=== PATIENT | male | born 1930 | race Caucasian/White ===

== ENCOUNTER 2016-12-23 21:20 | Inpatient (IN) | payer MEDICARE, MEDICAID ==
[2016-12-23 21:21] VITALS: BMI 20.3
[2016-12-23 22:27] LABS: BASO # 0.1 K/uL (0.0-0.2); BASO % 0.4 % (0.0-2.0); EOS % 0.3 % (0.0-4.0); HEMATOCRIT 44.9 % (35.0-51.0); LYMPH # 1.3 K/uL (1.0-4.3); LYMPH % 9.5 % (20.0-40.0); MEAN CORPUSCULAR HEMOGLOBIN 30.8 pg (27.0-31.0); MEAN CORPUSCULAR HGB CONC 33.3 g/dL (33.0-37.0); MEAN PLATELET VOLUME 8.4 fL (7.2-11.7); MONO # 0.4 K/uL (0.0-0.8); PLATELET COUNT 272 K/uL (130-400); RED CELL DISTRIBUTION WIDTH 13.9 % (11.5-14.5)
[2016-12-23 22:35] LABS: INR 1.1
[2016-12-23 22:37] LABS: CHLORIDE 102 mmol/L (98-107)
[2016-12-23 22:38] LABS: POTASSIUM 3.8 mmol/L (3.6-5.2); SODIUM 135 mmol/L (132-148)
[2016-12-23 22:40] LABS: GFR AFRICAN-AMERICAN > 60
[2016-12-23 22:41] LABS: ALB/GLOB RATIO 1.3 (1.0-2.1); ALKALINE PHOSPHATASE 132 U/L (38-126); ALT/SGPT 12 U/L (21-72); AST/SGOT 23 U/L (17-59); BILIRUBIN,TOTAL 0.6 mg/dL (0.2-1.3); BLOOD UREA NITROGEN 14 mg/dL (9-20); CALCIUM 8.8 mg/dl (8.6-10.4); CARBON DIOXIDE 18 mmol/L (22-30); GLUCOSE,RANDOM 186 mg/dL (75-110); TOTAL PROTEIN 6.8 g/dL (6.3-8.3)
[2016-12-23 22:42] LABS: MEAN CELL VOLUME 92.5 fL (80.0-94.0); WHITE BLOOD COUNT 13.7 K/uL (4.8-10.8)
[2016-12-23 22:58] LABS: BASOPHIL 1 % (0-2); NEUTROPHIL 88 % (50-75); TOTAL CELLS COUNTED 100
[2016-12-23 22:59] LABS: LARGE PLATELETS PRESENT
--- NOTE | 2016-12-23 23:41 | C.PDOC ---
History Of Present Illness 86 year old male was brought to the ED by relative after having a seizure at the residential. Patient's relative states patient has a history of seizures and has been refusing to take his medicines, therefore the doctor stopped the keppra. No reported fever, is eating OK and presently back to baseline Time Seen by Provider: 12/23/16 21:54 Chief Complaint (Nursing): Altered Mental Status History Per: Family History/Exam Limitations: no limitations Onset/Duration Of Symptoms: Hrs Past Medical History Reviewed: Historical Data, Nursing Documentation, Vital Signs Vital Signs: Last Vital Signs Temp 97.9 F 12/23/16 21:41 Pulse 60 12/23/16 21:27 Resp 17 12/23/16 21:27 BP 118/67 12/23/16 21:27 Pulse Ox 99 12/23/16 23:43 - Medical History PMH: Alzheimer's Disease, Anxiety, Arthritis, Atrial Fibrillation, Benign Prostatic Hyperplasia, CAD, CHF, COPD, 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), Dementia, Depression, Gastritis, Gastrointestinal Ulcer, HTN, Hypercholesterolemia, Hyperlipidemia, Peripheral Edema, Seizures Surgical History: Pacemaker - [facility] Procedures CENTRAL VENOUS CATHETER PLACEMENT WITH GUIDANCE (03/31/15) CONTINUOUS INVASIVE MECHANICAL VENTILATION <96 CONSEC HRS (02/02/14) CONTINUOUS INVASIVE MECHANICAL VENTILATION =/>96 CONSEC HRS (03/31/15) CORONAR ARTERIOGR-2 CATH (02/02/14) ETHMOIDECTOMY (07/06/99) FRONTAL SINUSOTOMY (07/06/99) INSERT ENDOTRACHEAL TUBE (03/31/15) INTRANAS LES DESTRUCTION (07/06/99) INTRANASAL ANTROTOMY (07/06/99) LEFT HEART CARDIAC CATH (02/02/14) LT HEART ANGIOCARDIOGRAM (02/02/14) NON-INVASIVE MECHANICAL VENTILATION (03/31/15) NONEXCIS DEBRID OF WOUND, INFECT, OR BURN (07/15/13) PACEMAKER RATE CHECK (02/02/14) SPHENOIDOTOMY (07/06/99) Family History: States: Unknown Family Hx - Social History Hx Tobacco Use: No Hx Alcohol Use: No Hx Substance Use: No Review Of Systems Constitutional: Negative for: Fever, Chills Respiratory: Negative for: Cough Gastrointestinal: Negative for: Vomiting, Abdominal Pain, Diarrhea Physical Exam - Physical Exam Appears: Non-toxic, Chronically Ill Skin: Warm, Dry Eye(s): bilateral: Normal Inspection Oral Mucosa: Moist Tongue: Other (not bitten) Neck: Supple Cardiovascular: Rhythm Regular, No Murmur Respiratory: No Rales, No Rhonchi, No Wheezing Gastrointestinal/Abdominal: Soft, No Tenderness, No Distention, No Guarding Extremity: Normal ROM, No Tenderness Neurological/Psych: Oriented x3, Normal Speech, Normal Motor (= ) ED Course And Treatment - Laboratory Results Result Diagrams: 12/23/16 22:23 12/23/16 22:23 ECG Rhythm: AV Paced Rate From EC O2 Sat by Pulse Oximetry: 99 Pulse Ox Interpretation: Normal Medical Decision Making Medical Decision Making: Labs mildly elevated wbc's, remainder unremarkable CT no acute changes Pt had grand mal seizure, medicated with ativan iv and IV keppra ordered In view of the recurrent seizure and apparently being off his keppra pt will need admission for further stabilization. Case discussed with dr Hanna agrees with plan. Disposition - Disposition Disposition: HOSPITALIZED Disposition Time: 00:36 Condition: FAIR - Clinical Impression Clinical Impression: Seizures - Scribe Statement The provider has reviewed the documentation as recorded by the Scribe Michelle Pickard All medical record entries made by the Scribe were at my direction and personally dictated by me. I have reviewed the chart and agree that the record accurately reflects my personal performance of the history, physical exam, medical decision making, and the department course for this patient. I have also personally directed, reviewed, and agree with the discharge instructions and disposition.
[2016-12-23] MEDS ORDERED: levETIRAcetam 1,000 MG in Dextrose 5% In Water 200 ML IVPB ONE (23:53)
--- NOTE | 2016-12-24 08:19 | CT ---
PROCEDURE: CT HEAD WITHOUT CONTRAST. HISTORY: Seizure COMPARISON: None available. TECHNIQUE: Axial computed tomography images were obtained through the head/brain without intravenous contrast. Radiation dose: Total exam DLP = 901 mGy-cm. This CT exam was performed using one or more of the following dose reduction techniques: Automated exposure control, adjustment of the mA and/or kV according to patient size, and/or use of iterative reconstruction technique. FINDINGS: HEMORRHAGE: No intracranial hemorrhage. BRAIN: Scattered focal lucencies in the subcortical and periventricular white matter suggestive for chronic microvascular ischemic change. Moderate to severe brain volume loss. Right frontal hypodensity/hypodensities probably reflect chronic infarction. Right basal ganglia lacunar infarction. Bilateral basal ganglia calcifications. Cerebellar atrophy. VENTRICLES: Unremarkable. No hydrocephalus. CALVARIUM: Diffuse calvarial lytic lucencies are nonspecific. Clinical correlation recommended for lytic bone disease versus osteoporosis. PARANASAL SINUSES: Postsurgical changes. Mucosal thickening in the sphenoid sinus. MASTOID AIR CELLS: Unremarkable as visualized. No inflammatory changes. OTHER FINDINGS: Calcific atherosclerosis of the bilateral carotid siphon. IMPRESSION: Diffuse calvarial lytic lucencies are nonspecific. Clinical correlation recommended for lytic bone disease versus osteoporosis. Moderate to severe brain volume loss. Chronic microvascular ischemic change. Right frontal hypodensity/hypodensities probably reflect chronic infarction. Right basal ganglia lacunar infarct. Additional findings as above. If focal neurologic deficit persists, consider MRI. These findings were preliminarily reported at 11:35 p.m. on 12/23/[address] Wale Khalil from [facility].
--- NOTE | 2016-12-24 08:25 | RAD ---
PROCEDURE: CHEST RADIOGRAPH, 1 VIEW HISTORY: seizure COMPARISON: 04/07/2015 FINDINGS: LUNGS: Biapical pleural thickening with upper lobe granulomatous changes. Mild venous congestion. Diffuse increased interstitial lung markings. Patchy bibasilar airspace opacities. Trace left pleural effusion with blunted left costophrenic angle. PLEURA: As above. CARDIOVASCULAR: Left-sided pacemaker. OSSEOUS STRUCTURES: No significant abnormalities. VISUALIZED UPPER ABDOMEN: Normal. OTHER FINDINGS: None. IMPRESSION: Biapical pleural thickening with upper lobe granulomatous changes. Mild venous congestion. Diffuse increased interstitial lung markings. Patchy bibasilar airspace opacities. Trace left pleural effusion with blunted left costophrenic angle.
--- NOTE | 2016-12-24 14:44 | VASCLAB ---
PROCEDURE: HISTORY: CAD, uncontrolled seizure COMPARISON: Last exam 04/01/2015,normal. TECHNIQUE: Grayscale and duplex Doppler evaluation of the cervical carotid and vertebral arteries were performed. The common carotid, carotid bifurcations and cervical Internal Carotid Artery (ICA) and proximal External Carotid Artery (ECA) were evaluated. The vertebral arteries were evaluated for gross patency and flow direction. Report prepared by FERNIE Nava FINDINGS: RIGHT CAROTID ARTERIES: 1. Common Carotid Artery: Mild heterogeneous plaque formation of the right common carotid artery. Maximum Peak Systolic velocity: 53 cm/sec: End-diastolic velocity 0 cm/sec. 2. Carotid Bifurcation: Heterogeneous plaque formation. Maximum Peak Systolic velocity: 22 cm/sec: End-diastolic velocity 7 cm/sec. 3. Internal Carotid Artery: Plaque description: Heterogeneous 3.1. Proximal Segment: Peak systolic velocity 45 cm/sec: End-diastolic velocity 8 cm/sec - % stenosis 0-15% 3.2. Middle Segment: Peak systolic velocity 59 cm/sec: End-diastolic velocity 17 cm/sec - % stenosis 0-15% 3.3. Distal Segment: Peak systolic velocity 33 cm/sec: End-diastolic velocity 9 cm/sec - % stenosis 0-15% 4. External Carotid Artery: Heterogeneous focal plaque formation. Peak systolic velocity 59 cm/sec 5. ICA/CCA Ratio: 2.1 LEFT CAROTID ARTERIES: 1. Common Carotid Artery: Mild heterogeneousplaque formation of the left common carotid artery. Maximum Peak Systolic velocity: 77 cm/sec: End-diastolic velocity 9 cm/sec. 2. Carotid Bifurcation: Heterogeneous plaque formation. Maximum Peak Systolic velocity: 27 cm/sec: End-diastolic velocity 9 cm/sec. 3. Internal Carotid Artery: Plaque description: Heterogeneous 3.1. Proximal Segment: Peak systolic velocity 32 cm/sec: End-diastolic velocity 4 cm/sec - % stenosis 0-15% 3.2. Middle Segment: Peak systolic velocity 59 cm/sec: End-diastolic velocity 18 cm/sec - % stenosis 0-15% 3.3. Distal Segment: Peak systolic velocity 59 cm/sec: End-diastolic velocity 10 cm/sec - % stenosis 0-15% 4. External Carotid Artery: No significant focal plaque formation. Peak systolic velocity 58 cm/sec 5. ICA/CCA Ratio: 2.0 VERTEBRAL ARTERIES: 1. Right Vertebral Artery: The right vertebral artery flow direction is antegrade. 2. Left Vertebral Artery: Unable to visualize the left vertebral artery. OTHER FINDINGS: 1. Right Brachial Blood pressure: 110 mmHg. 2. Left Brachial Blood pressure: 115 mmHg. IMPRESSION: RIGHT: Duplex scan does not suggest hemodynamically significant stenosis of the right extracranial carotid arteries. Severely tortuous right ICA. LEFT: Duplex scan does not suggest hemodynamically significant stenosis of the left extracranial carotid arteries.
[2016-12-24] MEDS: Potassium Chloride 20 MEQ in Dextrose 5%/0.9% NS 1,000 ML IV SCH (16:35)
--- NOTE | 2016-12-24 18:53 | CON ---
DATE: 12/24/2016 REASON FOR CONSULTATION: Seizure. HISTORY OF PRESENT ILLNESS: The patient is an 86-year-old male who was brought from group home aft er he had a seizure. The patient apparently was refusing his medications in the group home. His K eppra was stopped recently. The patient apparently was noticed to be lethargic and sleepy and it was assumed that the patient had a seizure. The patient did not have any fever and was back to his base line. Denies any focal weakness in arms or legs. According to his daughter, he does have memory iss ues. He is able to walk a little and take a few steps, goes to the bathroom by himself with the help of a cane or walker. PAST MEDICAL HISTORY: Includes Alzheimer disease, anxiety, atrial fibrillation, benign prostate hype rplasia, coronary artery disease, CHF, COPD, CVA with left hemiparesis, depression, gastritis, hyperc holesterolemia, seizures. MEDICATIONS AT HOME: Included Keppra 1000 mg b.i.d. which was recently stopped, Crestor, Protonix, m etoprolol, Cozaar, Lasix, Lanoxin, Pulmicort, aspirin, and albuterol. ALLERGIES: No known drug allergies. SOCIAL HISTORY: The patient is a group home resident, nonsmoker and nonalcoholic. Does not use an y illicit drugs. FAMILY HISTORY: Noncontributory to the case. PHYSICAL EXAMINATION: GENERAL: The patient is an elderly male lying on the bed, in no acute distress. VITAL SIGNS: His blood pressure is 129/84, heart rate is 86 per minute, breathing at a rate of 16 pe r minute, and his temperature is 97.9 degrees Fahrenheit. HEENT: Normocephalic, atraumatic. NECK: Supple. There are no carotid bruits. LUNGS: Clear. CARDIOVASCULAR: S1, S2 audible. No murmurs. ABDOMEN: Soft and nontender with bowel sounds present. NEUROLOGIC EXAMINATION: MENTAL STATUS: The patient is awake, alert. He follows simple commands. He does not know the year or the month. CRANIAL NERVES: Pupils are 3 mm, minimally reactive to light. Extraocular movements are intact. Th ere is no facial asymmetry. He is awake, moving all 4 extremities symmetrically. Power appears to b e 4/5 all over. Reflexes 1+ and symmetrical with absent ankle jerk. Plantars downgoing bilaterally. CEREBELLAR: No gross dysmetria is seen. SENSORY: Intact to soft touch and pinprick. GAIT: Deferred at the moment. LABORATORY DATA: Labs reviewed, shows WBC of 13.7, hemoglobin 14.9, hematocrit is 44.9, platelets of 272. INR is 1.1. Sodium is 135, potassium 3.8, chloride 102, carbon dioxide 18, BUN of 14, creatin ine of 1.2 and glucose of 186. His digoxin level is 0.6. He had a CT scan of the head done, which s hows diffuse calvarial lytic lucencies, nonspecific, moderate to severe brain volume loss, chronic mi crovascular ischemic changes, right frontal hypodensity/hypodensities probably reflect chronic infarc tion. Right basal ganglia lacunar infarct. He had carotid Doppler studies, which shows no significa nt stenosis. IMPRESSION: 1. Seizure disorder with breakthrough seizures secondary to the patient not taking the medication. 2. Alzheimer disease. 3. Cerebrovascular disease. RECOMMENDATIONS: 1. The patient was started on Keppra 500 mg every 12 hours, which is to be continued. 2. The patient to have an electroencephalogram. 3. The patient to be started on aspirin with his history of underlying cerebrovascular disease. 4. The patient to have physical therapy for gait imbalance. 5. The patient to have seizure precautions. Thank you for the opportunity to participate in the care of this patient. Brittny Mendoza MD cc: [id number] TT: 12/24/2016 18:53:18 Confirmation # [id number] Dictation # [id number] [email or web address]
--- NOTE | 2016-12-24 19:41 | EEG ---
DATE: 12/24/2016 INTRODUCTION: This is a digitally recorded EEG monitoring using standard EEG montages. BACKGROUND RHYTHM: The EEG shows a background activity of 7 Hz theta activity in parietooccipital re gion. The EEG activity is bilaterally symmetrical and synchronous. Small amount of myogenic artifac t noticed in this EEG recording. ABNORMAL POTENTIALS: No spikes, sharp waves or focal slowing was seen. PHOTIC STIMULATION AND HYPERVENTILATION: Photic stimulation did not reveal any abnormality. Hyperve ntilation was not performed. IMPRESSION: Abnormal EEG. The above findings are consistent with mild bihemispheric cerebral dysfun ction. No epileptiform activity seen in this EEG recording. Brittny Mendoza MD cc: [id number] TT: 12/24/2016 19:40:57 Confirmation # [id number] Dictation # [id number] jamari
[2016-12-25] MEDS: Potassium Chloride 20 MEQ in Dextrose 5%/0.9% NS 1,000 ML IV SCH ×3 (03:55→20:29)
--- NOTE | 2016-12-25 07:57 | CARD ---
APPROVED REPORT EKG Measurement Heart [id number] <Conclusion> Ventricular-paced rhythm Abnormal ECG
--- NOTE | 2016-12-25 11:59 | CP.PCM.CON ---
History of Present Illness - History of Present Illness History of Present Illness: Palliative consult for clarifying the Code status Requested by Jacques KENDALL patient is a 86 yo male admitted from [facility], S/P seizures. patient has Hx of seizures, but refused to take Kepra as was ordered. The Carotid Doppler study found no hemodinamically significant stenosis. patient seem by Doctor Kelly and EEG ordered. The Out of Hospital DNR copy was on chart. It was not clear what was the in hospital Code status for this patient. I was asked to assist with this issue. PMH: seizures, Alzheimer's, anxiety, BPH, CAD, COPD, CHF Soc. Hx: , [facility] resident Fam. Hx: Unknown Review of Systems - Review of Systems Systems not reviewed;Unavailable: Altered Mental Status Past Patient History - Tetanus Immunizations Tetanus Immunization: Unknown - Past Medical History & Family History Past Medical History?: Yes - Past Social History Smoking Status: Never Smoked - CARDIAC Hx Atrial Fibrillation: Yes Hx Congestive Heart Failure: Yes Hx Hypercholesterolemia: Yes Hx Hypertension: Yes Hx Pacemaker: Yes Hx Peripheral Edema: Yes - PULMONARY Hx Chronic Obstructive Pulmonary Disease (COPD): Yes - NEUROLOGICAL Hx Alzheimer's Disease: Yes Hx Dementia: Yes Hx Seizures: Yes - HEENT Hx HEENT Problems: No Other/Comment: uses reading eyeglasses, vision decreased/presbyopia - RENAL Hx Chronic Kidney Disease: No - ENDOCRINE/METABOLIC Hx Endocrine Disorders: No - HEMATOLOGICAL/ONCOLOGICAL Hx Blood Disorders: No - INTEGUMENTARY Hx Dermatological Problems: No - MUSCULOSKELETAL/RHEUMATOLOGICAL Hx Arthritis: Yes Hx Falls: No - GASTROINTESTINAL Hx Gastritis: Yes - GENITOURINARY/GYNECOLOGICAL Hx Genitourinary Disorders: No - PSYCHIATRIC Hx Anxiety: Yes Hx Depression: Yes Hx Substance Use: No - SURGICAL HISTORY Hx Surgeries: Yes Hx Cardiac Catheterization: Yes (02/02/14) Other/Comment: pacemaker insertion-02/02/14;ethmoidectomy,frontal sinusotomy, intranasal antrotomy,sphenoidotomy-07/06/99; - ANESTHESIA Hx Anesthesia: Yes Hx Anesthesia Reactions: No Hx Malignant Hyperthermia: No Meds Allergies/Adverse Reactions: Allergies Allergy/AdvReac Type Severity Reaction Status Date / Time No Known Allergies Allergy Verified 12/23/16 21:35 - Medications Medications: Current Medications Aspirin (Aspirin Chewable) 81 mg PO DAILY [facility] Last Admin: 12/25/16 10:18 Dose: 81 mg Citalopram Hydrobromide (Celexa) 40 mg PO DAILY [facility] Last Admin: 12/25/16 10:19 Dose: 40 mg Enoxaparin Sodium (Lovenox) 30 mg SC DAILY [facility] Levetiracetam 500 mg/ Dextrose 105 mls @ 420 mls/hr IVPB Q12H [facility] Last Admin: 12/25/16 03:00 Dose: 420 mls/hr Potassium Chloride 20 meq/ (Dextrose/Sodium Chloride) 1,010 mls @ 70 mls/hr IV .[id number] [facility] Last Admin: 12/25/16 03:55 Dose: 70 mls/hr Lorazepam (Ativan) 1 mg IVP Q6H PRN PRN Reason: Seizure activity Last Admin: 12/24/16 22:16 Dose: 1 mg Losartan Potassium (Cozaar) 25 mg PO DAILY [facility] Last Admin: 12/25/16 10:18 Dose: 25 mg Metoprolol Tartrate (Lopressor) 25 mg PO BID [facility] Last Admin: 12/25/16 10:18 Dose: 25 mg Pantoprazole Sodium (Protonix Inj) 40 mg IVP DAILY [facility] Rosuvastatin Calcium (Crestor) 10 mg PO HS [facility] Last Admin: 12/24/16 22:00 Dose: 10 mg Physical Exam - Constitutional Appears: No Acute Distress - Head Exam Head Exam: ATRAUMATIC, NORMAL INSPECTION, NORMOCEPHALIC - Eye Exam Eye Exam: Normal appearance Pupil Exam: NORMAL ACCOMODATION - ENT Exam ENT Exam: Mucous Membranes Moist, Normal Exam - Neck Exam Neck exam: Positive for: Normal Inspection - Respiratory Exam Respiratory Exam: Decreased Breath Sounds, Clear to Auscultation Bilateral, NORMAL BREATHING PATTERN - Cardiovascular Exam Cardiovascular Exam: Tachycardia, REGULAR RHYTHM, +S1, +S2 - GI/Abdominal Exam GI & Abdominal Exam: Diminished Bowel Sounds - Rectal Exam Rectal Exam: Deferred - Exam Exam: NORMAL INSPECTION - Extremities Exam Extremities exam: Positive for: normal capillary refill, normal inspection, pedal pulses present - Back Exam Back exam: NORMAL INSPECTION - Neurological Exam Neurological exam: Alert, Altered - Psychiatric Exam Psychiatric exam: Flat Affect - Skin Skin Exam: Intact, Normal Color, Warm Results - Vital Signs Recent Vital Signs: Last Vital Signs Temp 97.4 F L 12/25/16 08:00 Pulse 92 H 12/25/16 08:00 Resp 19 12/25/16 08:00 BP 130/90 12/25/16 10:18 Pulse Ox 93 L 12/24/16 16:00 - Labs Result Diagrams: 12/23/16 22:23 12/23/16 22:23 Assessment & Plan - Assessment and Plan (Free Text) Assessment: Palliative consult Code status DNR as per Out of Hospital DNR form. PPS 30%. ROS unobtainable due to confusion I reviewed medical records, all diagnostic studies, examined patient in the bed and tried to interview him, what was limited due to AMS. Goals of care discussed with patient's daughter Arely over the phone on two different occasions. Patient is alert, and with occasional confusion, in no acute distress. Patient requires max assistance with ADLs, due to AMS. Patient was fed breakfast by aid this morning. BP 130/90, HR 92, O2Sat 93% NC. No new seizures activities. Doctor Kelly ordered Kepra 500 mg IV BID and seizure precautions. I discussed he Code status with patient's daughter Arely, who is a SW at [facility]. POLST faxed over from [place] indicates DNR only where the DNI section was left open. The goals of care indicates " comfort and proper nutrition" while the Medical interventions sections states ' Symptoms treatment only". I read this back to Arely. She was clear that she would not want her father to be intubated either but would want all other non invasive measures to be applied to support life, including IV antibiotics, non invasive Oxygen supply, wound care, blood transfusion etc. I suggested that the current POLST needed to be updated and she agreed. Impression * Patient is S/P seizures at [facility] recovering well * Kepra Tx initiated * Copy of POLST from [facility] on chart indicates DNR only * In phone conversation with patient' daughter Arely, it was made clear that she would not want patient to be intubated either * We agreed to update the existing POLST Suggestion * DNR/DNI as per daughter's request * I will prepare new POLST for the daughter to sign when visits * Maintain safety and seizure precautions * Assist with ADLs * Discharge planing to [facility] [place] when stable Thank you very much for consulting Palliative care
[2016-12-25] MEDS ORDERED: Enoxaparin 30 mg Syringe SC SCH (13:30)
[2016-12-25 20:13] LABS: RBC URINE 2 /hpf (0-3); URINE BACTERIA MOD (<OCC); URINE BILIRUBIN NEGATIVE (NEGATIVE); URINE COLOR Yellow (YELLOW); URINE GLUCOSE (UA) 1+ mg/dL (Normal); URINE KETONE TRACE mg/dL (NEGATIVE); URINE LEUKOCYTE ESTERASE NEG Leu/uL (Negative); URINE PROTEIN 2+ mg/dL (NEGATIVE); URINE URIC ACID CRYSTALS MOD /hpf (<OCC); URINE UROBILINOGEN NORMAL mg/dL (0.2-1.0); WBC URINE 4 /hpf (0-5)
[2016-12-25 20:15] LABS: URINE BLOOD 1+ (NEGATIVE)
--- NOTE | 2016-12-25 20:25 | CP.PCM.HP ---
History of Present Illness - History of Present Illness History of Present Illness: LATE ENTRY FOR HISTORY AND PHYSICAL OF SAMANTHA BOYD, [place] [facility] [place] [facility]: cc: uncontrolled seizures, Pt was planning on gonig to a libertarian last week at the facility, when he suddenly slumped forward and pt became unresponsive to verbal and tactile stimuli.. Pt slowly recovered his senses and was brought back to his room, when he suddenly slumped over and appeared unaware of his surroundings. Pt received visitors back on the floor with minimal supervision. and when daughter arrived later, found the pt slumped over and disoriented, again. Pt had apparently been refusing to take his seizure medication and had been off of the meds for 1 week after it was discontinued by pt's PMD at the [facility]. Pt was brought to [facility] ER by EMS upon the family member's insistence since pt's records all at this facility. While at the ER, pt's seizure recurred. Pt was given IV Keppra at the field, and while awaiting to be seen by ER MD, pt had another grand mal seizure. Pt given 1 mg Ativan with no further seizure activity ever since. Present on Admission - Present on Admission Any Indicators Present on Admission: No History of DVT/PE: No History of Uncontrolled Diabetes: Yes Urinary Catheter: Yes Review of Systems - Review of Systems Systems not reviewed;Unavailable: Acuity of Condition, Unstable Vital Signs, Altered Mental Status - Constitutional Constitutional: Daytime Sleepiness, Fatigue - EENT Ears: As Per HPI Past Patient History - Tetanus Immunizations Tetanus Immunization: Unknown - Past Medical History & Family History Past Medical History?: Yes - Past Social History Smoking Status: Never Smoked - CARDIAC Hx Congestive Heart Failure: Yes Hx Hypercholesterolemia: Yes Hx Hypertension: Yes - PULMONARY Hx Chronic Obstructive Pulmonary Disease (COPD): Yes - NEUROLOGICAL HX Cerebrovascular Accident: Yes - HEENT Hx HEENT Problems: No Other/Comment: uses reading eyeglasses, vision decreased/presbyopia - RENAL Hx Chronic Kidney Disease: No - ENDOCRINE/METABOLIC Hx Endocrine Disorders: No - HEMATOLOGICAL/ONCOLOGICAL Hx Blood Disorders: No - INTEGUMENTARY Hx Dermatological Problems: No - MUSCULOSKELETAL/RHEUMATOLOGICAL Hx Arthritis: Yes Hx Falls: No - GASTROINTESTINAL Hx Gastritis: Yes - GENITOURINARY/GYNECOLOGICAL Hx Genitourinary Disorders: No - PSYCHIATRIC Hx Anxiety: Yes Hx Depression: Yes Hx Substance Use: No - SURGICAL HISTORY Hx Surgeries: Yes Hx Cardiac Catheterization: Yes (02/02/14) Other/Comment: pacemaker insertion-02/02/14;ethmoidectomy,frontal sinusotomy, intranasal antrotomy,sphenoidotomy-07/06/99; - ANESTHESIA Hx Anesthesia: Yes Hx Anesthesia Reactions: No Hx Malignant Hyperthermia: No Meds Allergies/Adverse Reactions: Allergies Allergy/AdvReac Type Severity Reaction Status Date / Time No Known Allergies Allergy Verified 12/23/16 21:35 Physical Exam - Constitutional Appears: In Acute Distress, Cachectic, Chronically Ill - Head Exam Head Exam: ATRAUMATIC, NORMAL INSPECTION, NORMOCEPHALIC - Eye Exam Eye Exam: PERRL Pupil Exam: NORMAL ACCOMODATION - ENT Exam ENT Exam: Mucous Membranes Dry - Neck Exam Neck exam: Positive for: Normal Inspection - Respiratory Exam Respiratory Exam: Clear to Auscultation Bilateral, NORMAL BREATHING PATTERN - Cardiovascular Exam Cardiovascular Exam: REGULAR RHYTHM - GI/Abdominal Exam GI & Abdominal Exam: Normal Bowel Sounds - Rectal Exam Rectal Exam: Deferred - Extremities Exam Extremities exam: Positive for: normal inspection - Back Exam Back exam: NORMAL INSPECTION - Neurological Exam Neurological exam: Alert, CN II-XII Intact, Oriented x3 - Psychiatric Exam Psychiatric exam: Normal Affect - Skin Skin Exam: Dry, Intact, Normal Color, Warm Results - Vital Signs Recent Vital Signs: Last Vital Signs Temp 97.8 F 12/25/16 16:00 Pulse 102 H 12/25/16 17:45 Resp 21 12/25/16 17:45 BP 134/96 H 12/25/16 17:53 Pulse Ox 95 12/25/16 17:45 - Labs Result Diagrams: 12/27/16 11:48 12/27/16 11:48 Assessment & Plan - Assessment and Plan (Free Text) Assessment: seizures: restart pt on Keppra IV with ativan for breakthrough > copd: continue neb treatments > debility: needs PT > OA: nsaids if able to tolerate > hematuria: reddish urine, ? acute kidney injury Decision To Admit - Admit Certification Admit to Inpatient:: I hereby certify that this patient needs to be admitted for more intensive inpatient care because of intractable seizures which can pose to be a lifethreatening condition for him. - InPatient: Physician Admission Certification:: I hereby certify that this patient needs to be admitted for more intensive inpatient care because of intractable seizures which can pose to be a lifethreatening condition for him. He will need to be admitted for at least 2 nights. - . Bed Request Type: Telemetry
--- NOTE | 2016-12-25 21:31 | PN ---
DATE: 12/25/2016 SUBJECTIVE: The patient is lying on the bed, in no acute distress. PHYSICAL EXAMINATION: VITAL SIGNS: His blood pressure is 134/96, heart rate is 102 per minute, breathing at a rate of 16 p er minute, temperature is 97.8 degrees Fahrenheit. HEENT: Normocephalic, atraumatic. NECK: Supple. There are no carotid bruits. LUNGS: Clear. CARDIOVASCULAR: S1, S2 audible. No murmurs. ABDOMEN: Soft and nontender with bowel sounds present. NEUROLOGIC EXAMINATION: MENTAL STATUS: The patient is awake and alert. He follows some simple commands. CRANIAL NERVE EXAMINATION: Pupils are 3 mm, minimally reactive to light. Extraocular movements are intact. There is no facial asymmetry. MOTOR EXAMINATION: He is moving all 4 extremities symmetrically. Power appears to 4/5 all over. Re flexes 1+ and symmetrical with absent ankle jerk. CEREBELLAR: No gross dysmetria is seen. SENSORY: Intact to soft touch and pinprick. GAIT: Deferred at the moment. LABORATORY DATA: Reviewed. Electroencephalogram which is abnormal. Findings suggestive of mild bih emispheric cerebral dysfunction. No epileptiform activity seen in the EEG recording. IMPRESSION: 1. Breakthrough seizure with history of seizure disorder. 2. Alzheimer disease. 3. Cerebrovascular disease. RECOMMENDATIONS: 1. The patient had no further seizures. 2. The patient to be continued on Keppra 500 mg twice a day. 3. The patient to be continued on aspirin for his underlying cerebrovascular disease. 4. The patient to be continued to have seizure precautions. 5. Please continue supportive care and other treatment. Thank you for the opportunity to participate in the care of this patient. Brittny Mendoza MD cc: [id number] TT: 12/25/2016 21:30:50 Confirmation # [id number] Dictation # [id number]
[2016-12-25] MEDS: levETIRAcetam 100 mg/ml (5ml) Oral Syringe PO SCH (22:39)
[2016-12-26] MEDS: Albuterol 0.042% Inhal Sol (1.25 mg/3 mL) UD IH SCH ×4 (01:02→19:43)
[2016-12-26] MEDS: Budesonide 0.5 mg/2 ml Inhal Susp UD INH SCH ×2 (07:40→19:43)
[2016-12-26] MEDS: levETIRAcetam 100 mg/ml (5ml) Oral Syringe PO SCH ×2 (09:35→22:19)
[2016-12-26] MEDS ORDERED: Enoxaparin 30 mg Syringe SC SCH (10:00)
[2016-12-26] MEDS: Potassium Chloride 20 MEQ in Dextrose 5%/0.9% NS 1,000 ML IV SCH (10:44)
[2016-12-26 12:56] LABS: INR 1.2
[2016-12-26 15:28] VITALS: RESP 20
[2016-12-26] MEDS: Digoxin 125 mcg (0.125 mg) Tab PO SCH (17:35)
[2016-12-27] MEDS: Albuterol 0.042% Inhal Sol (1.25 mg/3 mL) UD IH SCH ×4 (01:16→20:38)
[2016-12-27] MEDS: Potassium Chloride 20 MEQ in Dextrose 5%/0.9% NS 1,000 ML IV SCH (04:18)
[2016-12-27] MEDS: Budesonide 0.5 mg/2 ml Inhal Susp UD INH SCH ×2 (07:28→20:38)
--- NOTE | 2016-12-27 08:26 | US ---
Renal ultrasound History: Hematuria. Comparison: Abdominal ultrasound dated 10/22/2012 Technique: Real-time sonography was performed through the kidneys. Findings: Right kidney: 9.2 x 3.7 x 4.2 centimeters. Mild increased echogenicity of the renal cortex suggestive for medical renal disease. Hypoechoic cyst seen in the upper pole measuring 1.7 x 1.2 x 1.7 centimeters and in the midpole measuring 1.6 x 0.9 x 1.4 centimeters. No calculi or hydronephrosis. Left Kidney: 10.4 x 4.5 x 4.4 centimeters. Mild increased echogenicity of the renal cortex suggestive for medical renal disease. Upper pole hypoechoic cyst measuring 1.1 x 1.0 x 0.9 centimeters. No calculi or hydronephrosis. There is limited visualization of a distal abdominal aortic aneurysm measuring 3.3 x 3.2 x 3.7 centimeters with a suggestion of eccentric prominent mural plaque and/or thrombosis. Correlation with dedicated abdominal aortic ultrasound and or CT angiogram of the aorta may be helpful for further evaluation if clinically indicated. Visualized urinary bladder is preserved. Impression Bilateral renal cysts. Mild increased echogenicity of the bilateral renal cortices suggestive for medical renal disease. 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 Correlation with dedicated abdominal aortic ultrasound and or CT angiogram of the aorta may be helpful for further evaluation if clinically indicated.
[2016-12-27] MEDS: levETIRAcetam 100 mg/ml (5ml) Oral Syringe PO SCH ×2 (10:08→22:03)
[2016-12-27] MEDS: Furosemide 10 mg/mL LIQ (60mL) PO SCH (11:04)
[2016-12-27 12:04] LABS: CHLORIDE 113 mmol/L (98-107); SODIUM 143 mmol/L (132-148)
[2016-12-27 12:07] LABS: BLOOD UREA NITROGEN 29 mg/dL (9-20); CALCIUM 8.3 mg/dl (8.6-10.4); CARBON DIOXIDE 19 mmol/L (22-30); GFR AFRICAN-AMERICAN > 60; GLUCOSE,RANDOM 200 mg/dL (75-110)
[2016-12-27 12:11] LABS: BASO % 0.1 % (0.0-2.0); LYMPH # 0.6 K/uL (1.0-4.3); LYMPH % 5.6 % (20.0-40.0); MEAN CELL VOLUME 92.8 fL (80.0-94.0); MEAN CORPUSCULAR HEMOGLOBIN 30.5 pg (27.0-31.0); MEAN CORPUSCULAR HGB CONC 32.9 g/dL (33.0-37.0); MEAN PLATELET VOLUME 9.4 fL (7.2-11.7); MONO # 0.5 K/uL (0.0-0.8); MONO % 4.8 % (0.0-10.0); NRBC % 0.1 % (0.0-2.0); RED CELL DISTRIBUTION WIDTH 14.5 % (11.5-14.5); WHITE BLOOD COUNT 11.2 K/uL (4.8-10.8)
[2016-12-27 12:12] LABS: PLATELET COUNT 138 K/uL (130-400)
[2016-12-27 12:30] LABS: EOSINOPHIL 1 % (0-4); NEUTROPHIL 92 % (50-75); NUCLEATED RED BLOOD CELL 2 % (0-0); TOTAL CELLS COUNTED 100
[2016-12-27] MEDS: cefTRIAXone IV 1 gm in Dextros 50 ML IVPB SCH (13:26)
[2016-12-27] MEDS: Digoxin 125 mcg (0.125 mg) Tab PO SCH (17:11)
[2016-12-27 17:12] VITALS: PULSE 78
--- NOTE | 2016-12-27 21:41 | CP.PCM.PN ---
Subjective - Date & Time of Evaluation Date of Evaluation: 12/26/16 Time of Evaluation: 21:30 - Subjective Subjective: LATE ENTRY FOR 12/26/2016 Pt noted to have hematuria on admission manifesting as a pinkish tinge to urine. 1 day after, urine became josé miguel red and appeared to be bleeding heavily from within. Because of hx of prolonged seizure, acute kidney injury could not be ruled out. Urine cultures obtained also showed many bacteria and awaiting culture results with sensitivities as of today. Objective - Vital Signs/Intake and Output Vital Signs (last 24 hours): Temp Pulse Resp BP Pulse Ox 99.9 F H 78 20 135/82 96 12/27/16 15:15 12/27/16 18:00 12/27/16 15:15 12/27/16 17:11 12/27/16 15:15 Intake and Output: 12/27/16 12/28/16 18:59 06:59 Intake Total 450 Output Total 350 Balance 100 - Medications Medications: Current Medications Albuterol Sulfate (Albuterol 0.042% Inhal Arina (1.25mg/3ml) Ud) 1.25 mg IH RQ6 [facility] Last Admin: 12/27/16 20:38 Dose: 1.25 mg Aspirin (Aspirin Chewable) 81 mg PO DAILY [facility] Last Admin: 12/27/16 10:05 Dose: 81 mg Budesonide (Pulmicort Respules) 0.5 mg INH RQ12 [facility] Last Admin: 12/27/16 20:38 Dose: 0.5 mg Citalopram Hydrobromide (Celexa) 40 mg PO DAILY [facility] Last Admin: 12/27/16 10:06 Dose: 40 mg Digoxin (Lanoxin) 0.125 mg PO DAILY@1800 [facility] Last Admin: 12/27/16 17:11 Dose: 0.125 mg Furosemide (Lasix) 10 mg PO DAILY [facility] Last Admin: 12/27/16 11:04 Dose: 10 mg Ceftriaxone Sodium (Rocephin Iv 1 Gm Duplex) 50 mls @ 100 mls/hr IVPB DAILY [facility] Last Admin: 12/27/16 13:26 Dose: 100 mls/hr Levetiracetam (Keppra) 500 mg PO Q12 [facility] Last Admin: 12/27/16 10:08 Dose: 500 mg Lorazepam (Ativan) 1 mg IVP Q6H PRN PRN Reason: Seizure activity Last Admin: 12/24/16 22:16 Dose: 1 mg Losartan Potassium (Cozaar) 50 mg PO DAILY [facility] Last Admin: 12/27/16 11:07 Dose: 50 mg Metoprolol Tartrate (Lopressor) 25 mg PO BID [facility] Last Admin: 12/27/16 17:11 Dose: 25 mg Pantoprazole Sodium (Protonix Inj) 40 mg IVP DAILY [facility] Last Admin: 12/27/16 10:05 Dose: 40 mg Rosuvastatin Calcium (Crestor) 10 mg PO HS [facility] Last Admin: 12/26/16 22:19 Dose: 10 mg - Labs Labs: 12/27/16 11:48 12/27/16 11:48 PT 13.8 SECONDS (9.7-12.2) H 12/26/16 12:39 INR 1.2 12/26/16 12:39 APTT 34 SECONDS (21-34) D 12/26/16 12:39 - Constitutional Appears: Non-toxic, In Acute Distress (mainly from pain on his knee when pt is moved) - Head Exam Head Exam: ATRAUMATIC, NORMAL INSPECTION, NORMOCEPHALIC - Eye Exam Eye Exam: Normal appearance (makes eye contact with me and appears to recognize me), PERRL - ENT Exam ENT Exam: Mucous Membranes Moist, Normal Exam - Neck Exam Neck Exam: Full ROM, Normal Inspection - Respiratory Exam Respiratory Exam: Clear to Ausculation Bilateral, NORMAL BREATHING PATTERN - Cardiovascular Exam Cardiovascular Exam: REGULAR RHYTHM - GI/Abdominal Exam GI & Abdominal Exam: Soft, Normal Bowel Sounds - Rectal Exam Rectal Exam: Deferred - Exam Exam: NORMAL INSPECTION (+ reddish urine, obviously blood tinged, source unknown) - Neurological Exam Neurological Exam: Abnormal Gait, Normal Gait Neuro motor strength exam: Left Upper Extremity: 4, Right Upper Extremity: 4, Left Lower Extremity: 4, Right Lower Extremity: 4 - Psychiatric Exam Psychiatric exam: Normal Affect, Normal Mood - Skin Skin Exam: Dry, Intact, Normal Color, Warm Assessment and Plan - Assessment and Plan (Free Text) Assessment: seizures: restart pt on Keppra IV with ativan for breakthrough; no adverse effects from norvas breaskough. > copd: continue neb treatments; educate on the 3 general tpes of inhaler and when to use each > debility: need started by PTs PT > OA: nsaids if able to tolerate > hematuria: reddish urine, ? acute kidney injury
[2016-12-27] MEDS: Bacitracin/Neomycin/Polymyxin Oint(30GM) TOP SCH (23:11)
[2016-12-28] MEDS: Albuterol 0.042% Inhal Sol (1.25 mg/3 mL) UD IH SCH ×3 (01:03→13:34)
[2016-12-28 06:27] LABS: BASO % 0.2 % (0.0-2.0); EOS % 0.4 % (0.0-4.0); HEMATOCRIT 42.4 % (35.0-51.0); LYMPH # 0.7 K/uL (1.0-4.3); LYMPH % 7.6 % (20.0-40.0); MEAN CELL VOLUME 94.3 fL (80.0-94.0); MEAN CORPUSCULAR HEMOGLOBIN 31.1 pg (27.0-31.0); MEAN CORPUSCULAR HGB CONC 32.9 g/dL (33.0-37.0); MEAN PLATELET VOLUME 9.1 fL (7.2-11.7); MONO # 0.6 K/uL (0.0-0.8); MONO % 6.8 % (0.0-10.0); NRBC % 0.1 % (0.0-2.0); PLATELET COUNT 140 K/uL (130-400); RED CELL DISTRIBUTION WIDTH 14.7 % (11.5-14.5); WHITE BLOOD COUNT 9.5 K/uL (4.8-10.8)
[2016-12-28 06:46] LABS: CHLORIDE 107 mmol/L (98-107); POTASSIUM 3.5 mmol/L (3.6-5.2); SODIUM 144 mmol/L (132-148)
[2016-12-28 06:50] LABS: BLOOD UREA NITROGEN 31 mg/dL (9-20); CALCIUM 8.1 mg/dl (8.6-10.4); CARBON DIOXIDE 26 mmol/L (22-30); GFR AFRICAN-AMERICAN > 60; GLUCOSE,RANDOM 114 mg/dL (75-110)
[2016-12-28] MEDS: Budesonide 0.5 mg/2 ml Inhal Susp UD INH SCH (07:37)
[2016-12-28 07:53] VITALS: PULSE 97; TEMP 98.1; O2SAT 94
[2016-12-28] MEDS: Bacitracin/Neomycin/Polymyxin Oint(30GM) TOP SCH (09:23)
[2016-12-28] MEDS: levETIRAcetam 100 mg/ml (5ml) Oral Syringe PO SCH (09:23)
[2016-12-28] MEDS: Furosemide 10 mg/mL LIQ (60mL) PO SCH (09:24)
[2016-12-28 09:30] VITALS: BP 129/83
[2016-12-28 09:57] LABS: EOSINOPHIL 1 % (0-4); NEUTROPHIL 87 % (50-75); TOTAL CELLS COUNTED 100
--- NOTE | 2016-12-28 10:23 | CP.PCM.DIS ---
Provider - Provider Date of Admission: 12/24/16 00:07 Attending physician: Santo Hanna MD Consults: Dr. Brittny Mendoza Time Spent in preparation of Discharge (in minutes): 30 Hospital Course - Lab Results Lab Results: Micro Results 12/26/16 14:00 Naris MRSA Culture - Final MRSA NOT DETECTED 12/25/16 06:00 Urine,Clean Catch Urine Culture - Preliminary Proteus Mirabilis Gram Positive Cocci Most Recent Lab Values WBC 9.5 K/uL (4.8-10.8) 12/28/16 06:21 RBC 4.50 Mil/uL (4.40-5.90) 12/28/16 06:21 Hgb 14.0 g/dL (12.0-18.0) 12/28/16 06:21 Hct 42.4 % (35.0-51.0) 12/28/16 06:21 MCV 94.3 fL (80.0-94.0) H 12/28/16 06:21 MCH 31.1 pg (27.0-31.0) H 12/28/16 06:21 MCHC 32.9 g/dL (33.0-37.0) L 12/28/16 06:21 RDW 14.7 % (11.5-14.5) H 12/28/16 06:21 Plt Count 140 K/uL (130-400) 12/28/16 06:21 MPV 9.1 fL (7.2-11.7) 12/28/16 06:21 Neut % (Auto) 85.0 % (50.0-75.0) H 12/28/16 06:21 Lymph % (Auto) 7.6 % (20.0-40.0) L 12/28/16 06:21 [place] % (Auto) 6.8 % (0.0-10.0) 12/28/16 06:21 Eos % (Auto) 0.4 % (0.0-4.0) 12/28/16 06:21 Baso % (Auto) 0.2 % (0.0-2.0) 12/28/16 06:21 Neut # 8.1 K/uL (1.8-7.0) H 12/28/16 06:21 Lymph # 0.7 K/uL (1.0-4.3) L 12/28/16 06:21 [place] # 0.6 K/uL (0.0-0.8) 12/28/16 06:21 Eos # 0.0 K/uL (0.0-0.7) 12/28/16 06:21 Baso # 0.0 K/uL (0.0-0.2) 12/28/16 06:21 Neutrophils % (Manual) 87 % (50-75) H 12/28/16 06:21 Lymphocytes % (Manual) 6 % (20-40) L 12/28/16 06:21 Monocytes % (Manual) 6 % (0-10) 12/28/16 06:21 Eosinophils % (Manual) 1 % (0-4) 12/28/16 06:21 Basophils % (Manual) 1 % (0-2) 12/23/16 22:23 Nucleated RBC % 2 % (0-0) H 12/27/16 11:48 Platelet Estimate Normal (NORMAL) 12/28/16 06:21 Large Platelets Present 12/23/16 22:23 RBC Morphology Normal 12/28/16 06:21 Poikilocytosis (manual Slight 12/27/16 11:48 PT 13.8 SECONDS (9.7-12.2) H 12/26/16 12:39 INR 1.2 12/26/16 12:39 APTT 34 SECONDS (21-34) D 12/26/16 12:39 Sodium 144 mmol/L (132-148) 12/28/16 06:21 Potassium 3.5 mmol/L (3.6-5.2) L 12/28/16 06:21 Chloride 107 mmol/L (98-107) 12/28/16 06:21 Carbon Dioxide 26 mmol/L (22-30) 12/28/16 06:21 Anion Gap 15 (10-20) 12/28/16 06:21 BUN 31 mg/dL (9-20) H 12/28/16 06:21 Creatinine 1.0 MG/DL (0.8-1.5) 12/28/16 06:21 Est GFR ( Amer) > 60 12/28/16 06:21 Est GFR (Non-Af Amer) > 60 12/28/16 06:21 POC Glucose (mg/dL) 208 mg/dL (65-110) H 12/23/16 21:31 Random Glucose 114 mg/dL (75-110) H 12/28/16 06:21 Calcium 8.1 mg/dl (8.6-10.4) L 12/28/16 06:21 Total Bilirubin 0.6 mg/dL (0.2-1.3) 12/23/16 22:23 AST 23 U/L (17-59) 12/23/16 22:23 ALT 12 U/L (21-72) L D 12/23/16 22:23 Alkaline Phosphatase 132 U/L (38-126) H 12/23/16 22:23 Troponin I < 0.0120 ng/mL (0.00-0.120) 12/23/16 22:23 Total Protein 6.8 g/dL (6.3-8.3) 12/23/16 22:23 Albumin 3.8 g/dL (3.5-5.0) 12/23/16 22:23 Globulin 3.0 gm/dL (2.2-3.9) 12/23/16 22:23 Albumin/Globulin Ratio 1.3 (1.0-2.1) 12/23/16 22:23 Urine Color Yellow (YELLOW) 12/23/16 19:29 Urine Clarity Turbid (Clear) 12/23/16 19:29 Urine pH 5.0 (5.0-8.0) 12/23/16 19:29 Ur Specific Randolph 1.026 (1.003-1.030) 12/23/16 19:29 Urine Protein 2+ mg/dL (NEGATIVE) H 12/23/16 19:29 Urine Glucose (UA) 1+ mg/dL (Normal) H 12/23/16 19:29 Urine Ketones Trace mg/dL (NEGATIVE) 12/23/16 19:29 Urine Blood 1+ (NEGATIVE) H 12/23/16 19:29 Urine Nitrate Negative (NEGATIVE) 12/23/16 19: Urine Bilirubin Negative (NEGATIVE) 12/23/16 19: Urine Urobilinogen Normal mg/dL (0.2-1.0) 12/23/16 19:29 Ur Leukocyte Esterase Neg Agnieszka/uL (Negative) 12/23/16 19:29 Urine WBC (Auto) 4 /hpf (0-5) 12/23/16 19:29 Urine RBC (Auto) 2 /hpf (0-3) 12/23/16 19:29 Uric Acid Crystals Mod /hpf (<OCC) H 12/23/16 19:29 Urine Bacteria Mod (<OCC) H 12/23/16 19:29 Digoxin 0.6 ng/mL (0.8-2.0) L 12/24/16 04:37 Discharge Exam - Head Exam Head Exam: ATRAUMATIC, NORMAL INSPECTION, NORMOCEPHALIC Discharge Plan - Follow Up Plan Condition: FAIR Disposition: NURSING FACILITY MEDICAID CERT Instructions: Heart Failure (DC), Complete Blenderized Diet (DC), Leukocytosis (DC), Hypertension (DC), Recurrent Seizures in Adults (DC), Leukocytosis (GEN) Additional Instructions: 1. keep heplock 2. continue rocephin 1 g IV daily for 7 more days 3. check cbc in 1 week 4. check leviteracetam in 1 week and make sure it's therapeutic, otherwise adjust dosage Referrals: Santo Hanna MD [Staff Provider] -
[2016-12-28] MEDS: cefTRIAXone IV 1 gm in Dextros 50 ML IVPB SCH (10:24)
--- NOTE | 2016-12-31 08:45 | CARD ---
APPROVED REPORT EXAM: Two-dimensional and M-mode echocardiogram with Doppler and color Doppler. Other Information Quality : AverageRhythm : NSR INDICATION CVA/TIA Dyspnea Atrial Fibrillation Chest Pain Congestive Heart Failure COPD RISK FACTORS Hypertension 2D DIMENSIONS LVOT Diameter1.9 (1.8-2.4cm) M-Mode DIMENSIONS RVDd1.94 (2.1-3.2cm)Left Atrium (MM)4.62 (2.5-4.0cm) IVSd0.95 (0.7-1.1cm)Aortic Root2.68 (2.2-3.7cm) LVDd4.53 (4.0-5.6cm)Aortic Cusp Exc.1.28 (1.5-2.0cm) PWd1.15 (0.7-1.1cm)FS (%) 15 % LVDs3.83 (2.0-3.8cm)LVEF (%)33 (>50%) Aortic Valve AoV Peak Snlmehtw953.3cm/sAoV VTI29.9cmAO Peak GR.16mmHg LVOT Peak Ofamsrgm97.2cm/sLVOT VTI16.44cmAO Mean GR.11mmHg PHAN (VMAX)1.72tp0ZZI (VTI)1.76mr6ML P 1/2 [id number] Mitral Valve MV E Rpfmyodz26.3cm/sMV A Oipumhqb71.3cm/sE/A ratio1.6 TDI E/Lateral E'0.0E/Medial E'0.0 Tricuspid Valve TR Peak Wddkhqco554pb/sTR Peak Gr.63vcQkXEUU96lfGh LEFT VENTRICLE The left ventricle is normal size. There is borderline concentric left ventricular hypertrophy. The Ejection Fraction is 30-35%. No regional wall motion abnormalities noted. The left ventricular diastolic function is normal. No left ventricle thrombus noted on this study. There is no ventricular septal defect visualized. There is no left ventricular aneurysm. There is no mass noted in the left ventricle. RIGHT VENTRICLE The right ventricle is normal size. There is normal right ventricular wall thickness. The right ventricular systolic function is normal. ATRIA The left atrium is mildly dilated. The right atrium size is normal. The interatrial septum is intact with no evidence for an atrial septal defect. AORTIC VALVE The aortic valve is normal in structure and function. There is mild to moderate aortic regurgitation. There is no aortic valvular stenosis. There is no aortic valvular vegetation. MITRAL VALVE The mitral valve is normal in structure and function. There is no evidence of mitral valve prolapse. There is no mitral valve stenosis. There is no mitral valve regurgitation noted. TRICUSPID VALVE The tricuspid valve is normal in structure and function. There is trace to mild tricuspid regurgitation. Right ventricular systolic pressure is estimated at 30-40 mmHg. There is mild pulmonary hypertension. There is no tricuspid valve prolapse or vegetation. There is no tricuspid valve stenosis. PULMONIC VALVE The pulmonary valve is normal in structure and function. There is no pulmonic valvular regurgitation. There is no pulmonic valvular stenosis. GREAT VESSELS The aortic root is normal in size. The ascending aorta is normal in size. The pulmonary artery is normal. The IVC is normal in size and collapses >50% with inspiration. PERICARDIAL EFFUSION The pericardium appears normal. There is no pleural effusion. <Conclusion> The left ventricle is normal size. There is borderline concentric left ventricular hypertrophy. The Ejection Fraction is 30-35%. There is mild to moderate aortic regurgitation. There is trace to mild tricuspid regurgitation. Right ventricular systolic pressure is estimated at 30-40 mmHg.
== END 2016-12-28 14:30 | DRG 101 ==
LOC: C.ER 21:20 → C.9E 12-24 00:07 → C.9I 12-24 06:58 → C.6T 12-26 12:52
PROVIDERS: ADMIT Family Medicine; ATTEND Family Medicine
DX: G40.409 Other generalized epilepsy and epileptic syndromes, not intractable, without status epilepticus (principal); N17.9 Acute kidney failure, unspecified; I69.354 Hemiplegia and hemiparesis following cerebral infarction affecting left non-dominant side; I11.0 Hypertensive heart disease with heart failure; I50.9 Heart failure, unspecified; I48.91 Unspecified atrial fibrillation; N12 Tubulo-interstitial nephritis, not specified as acute or chronic; R41.82 Altered mental status, unspecified; G30.9 Alzheimer's disease, unspecified; J44.9 Chronic obstructive pulmonary disease, unspecified; F02.80 Dementia in other diseases classified elsewhere, unspecified severity, without behavioral disturbance, psychotic disturbance, mood disturbance, and anxiety; F41.9 Anxiety disorder, unspecified; E78.5 Hyperlipidemia, unspecified; E78.00 Pure hypercholesterolemia, unspecified; M19.90 Unspecified osteoarthritis, unspecified site; I25.10 Atherosclerotic heart disease of native coronary artery without angina pectoris; Z95.0 Presence of cardiac pacemaker; N40.0 Benign prostatic hyperplasia without lower urinary tract symptoms; Z66 Do not resuscitate; Z51.5 Encounter for palliative care; R31.9 Hematuria, unspecified

== ENCOUNTER 2017-04-06 22:22 | Emergency (ER) | payer MEDICARE, MEDICAID ==
[2017-04-06 22:23] VITALS: PULSE 78; BMI 20.3
[2017-04-06] MEDS ORDERED: Lidocaine 1%/Epinephrine 1:100000 30 ml vial IJ ONE (22:54)
[2017-04-06 22:56] VITALS: PULSE 60
[2017-04-06] MEDS ORDERED: Lidocaine 1% w Epi 1:100,000 Inj ONE (22:58)
[2017-04-06 23:14] LABS: BASO % 0.6 % (0.0-2.0); EOS # 0.1 K/uL (0.0-0.7); EOS % 1.7 % (0.0-4.0); HEMOGLOBIN 12.2 g/dL (12.0-18.0); LYMPH # 1.7 K/uL (1.0-4.3); LYMPH % 19.6 % (20.0-40.0); MEAN CELL VOLUME 93.4 fL (80.0-94.0); MEAN CORPUSCULAR HEMOGLOBIN 30.4 pg (27.0-31.0); MEAN CORPUSCULAR HGB CONC 32.5 g/dL (33.0-37.0); MEAN PLATELET VOLUME 7.3 fL (7.2-11.7); MONO # 0.6 K/uL (0.0-0.8); MONO % 7.6 % (0.0-10.0); NEUT # 6.1 K/uL (1.8-7.0); NEUT % 70.5 % (50.0-75.0); NRBC % 0.1 % (0.0-2.0); RBC 4.01 Mil/uL (4.40-5.90); RED CELL DISTRIBUTION WIDTH 13.7 % (11.5-14.5); WHITE BLOOD COUNT 8.6 K/uL (4.8-10.8)
[2017-04-06 23:16] LABS: PROTHROMBIN TIME 11.7 SECONDS (9.7-12.2)
[2017-04-06] MEDS ORDERED: Bacitracin 500 Units/gm Oint Foilpak UD ONE (23:24)
[2017-04-06 23:38] LABS: ALBUMIN 3.2 g/dL (3.5-5.0)
--- NOTE | 2017-04-06 23:38 | C.PDOC ---
History Of Present Illness 86 year old male who presents to the ER after he fell out of his wheelchair and struck his forehead against the ground. Denies LOC, nausea, vomiting, or headache. Time Seen by Provider: 04/06/17 22:26 Chief Complaint (Nursing): Abnormal Skin Integrity History Per: Patient History/Exam Limitations: no limitations Onset/Duration Of Symptoms: Hrs Current Symptoms Are (Timing): Still Present Location Of Injury: Anterior: Head Quality Of Symptoms: Other (Laceration) Recent travel outside of the [place]: No Past Medical History Reviewed: Historical Data, Nursing Documentation, Vital Signs Vital Signs: Last Vital Signs Temp 97.9 F 04/06/17 22:39 Pulse 60 04/06/17 22:39 Resp 20 04/06/17 22:39 BP 193/99 H 04/06/17 22:39 Pulse Ox 98 04/06/17 23:43 - Medical History PMH: Alzheimer's Disease, Anxiety, Arthritis, Atrial Fibrillation, Benign Prostatic Hyperplasia, CAD, CHF, COPD, 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), Dementia, Depression, Gastritis, Gastrointestinal Ulcer, HTN, Hypercholesterolemia, Hyperlipidemia, Peripheral Edema, Seizures Surgical History: Pacemaker - [facility] CENTRAL VENOUS CATHETER PLACEMENT WITH GUIDANCE (03/31/15) CONTINUOUS INVASIVE MECHANICAL VENTILATION <96 CONSEC HRS (02/02/14) CONTINUOUS INVASIVE MECHANICAL VENTILATION =/>96 CONSEC HRS (03/31/15) CORONAR ARTERIOGR-2 CATH (02/02/14) ETHMOIDECTOMY (07/06/99) FRONTAL SINUSOTOMY (07/06/99) INSERT ENDOTRACHEAL TUBE (03/31/15) INTRANAS LES DESTRUCTION (07/06/99) INTRANASAL ANTROTOMY (07/06/99) LEFT HEART CARDIAC CATH (02/02/14) LT HEART ANGIOCARDIOGRAM (02/02/14) NON-INVASIVE MECHANICAL VENTILATION (03/31/15) NONEXCIS DEBRID OF WOUND, INFECT, OR BURN (07/15/13) PACEMAKER RATE CHECK (02/02/14) SPHENOIDOTOMY (07/06/99) Family History: States: Unknown Family Hx - Social History Hx Tobacco Use: No Hx Alcohol Use: No Hx Substance Use: No - Immunization History Hx Tetanus Toxoid Vaccination: No Hx Influenza Vaccination: No Hx Pneumococcal Vaccination: No Review Of Systems Gastrointestinal: Negative for: Nausea, Vomiting Skin: Positive for: Other (Laceration) Neurological: Negative for: Headache, Other (LOC) Physical Exam - Physical Exam Appears: Non-toxic Skin: Normal Color, Warm, Dry Head: Normacephalic, Laceration (3cm to left eyebrow) Eye(s): bilateral: Normal Inspection, PERRL, EOMI Oral Mucosa: Moist Neck: Normal, Supple Chest: Symmetrical, No Tenderness Cardiovascular: Rhythm Regular, No Murmur Respiratory: Normal Breath Sounds, No Rales, No Rhonchi, No Wheezing Gastrointestinal/Abdominal: Soft, No Tenderness Neurological/Psych: Oriented x3, Normal Speech, Normal Cognition ED Course And Treatment - Laboratory Results Result Diagrams: 04/06/17 23:04 04/06/17 23:27 Lab Interpretation: Normal (trop neg.) ECG: Interpreted By Me ECG Rhythm: V Paced ECG Interpretation: Normal Rate From EC O2 Sat by Pulse Oximetry: 98 (Room air) Pulse Ox Interpretation: Normal - Radiology CXR: Interpreted by Me CXR Interpretation: Yes: No Acute Disease - Other Rad head Ct X-Ray: Interpreted by Me, Read By Radiologist (no acute injuries) Progress Note: Head CT, EKG, blood work, and CXR ordered. Reevaluation Time: 00:07 Reassessment Condition: Improved Laceration - Laceration Repair Left eyebrow Wound Length (In cm): 3 Description Of Wound: Linear Wound Cleansed With: Sterile Saline Anesthesia: Lidocaine 1%, With Epi Wound Examination: Irrigated With Saline Wound Closure: Suture (x7) Suture Technique And Material Used: Nylon (5-0) Wound Complexity: Simple Medical Decision Making Medical Decision Making: fall from sitting in wheelchair, L brow lac, no brain/skull injury Defer abx for a clean wound and high risk of c-diff in detention DTap updated Disposition Doctor Will See Patient In The: Office Counseled Patient/Family Regarding: Studies Performed, Diagnosis - Disposition Disposition: TRANSF TO SNF Disposition Time: 00:08 Condition: GOOD Forms: [facility] (Thai) - Clinical Impression Clinical Impression: Facial laceration - Scribe Statement The provider has reviewed the documentation as recorded by the Scribe Amador Hargrove All medical record entries made by the Scribe were at my direction and personally dictated by me. I have reviewed the chart and agree that the record accurately reflects my personal performance of the history, physical exam, medical decision making, and the department course for this patient. I have also personally directed, reviewed, and agree with the discharge instructions and disposition.
[2017-04-06 23:41] LABS: ALB/GLOB RATIO 1.1 (1.0-2.1); AST/SGOT 13 U/L (17-59); BLOOD UREA NITROGEN 14 mg/dL (9-20); GFR AFRICAN-AMERICAN > 60; GFR NON-AFRICAN AMERICAN > 60
[2017-04-06 23:42] LABS: ALT/SGPT 20 U/L (21-72); CALCIUM 8.8 mg/dl (8.6-10.4)
[2017-04-06] MEDS ORDERED: Bacitracin Ointment 30 GM TUBE TOP STA (23:47)
--- NOTE | 2017-04-07 00:12 | CT ---
EXAM: CT Head Without Intravenous Contrast CLINICAL HISTORY: 86 years old, male; Injury or trauma; Fall; Initial encounter; Blunt trauma (contusions or hematomas); Consciousness not specified; Additional info: R frontal contusion, from sitting in wheelchair TECHNIQUE: Axial computed tomography images of the head/brain without intravenous contrast. This CT exam was performed using one or more of the following dose reduction techniques: automated exposure control, adjustment of the mA and/or kV according to patient size, and/or use of iterative reconstruction technique. Coronal and sagittal reformatted images were created and reviewed. COMPARISON: No relevant prior studies available. FINDINGS: Brain: No acute intracranial hemorrhage. Age-appropriate periventricular white matter disease. No edema. Right frontal scalp hematoma. Ventricles: Age-appropriate ventriculomegaly. Bones: No acute displaced fracture. Sinuses: Unremarkable as visualized. No acute sinusitis. Mastoid air cells: Unremarkable as visualized. No mastoid effusion. IMPRESSION: Right frontal scalp hematoma, without acute intracranial hemorrhage, or suspicious mass effect.
[2017-04-07 00:49] VITALS: BP 162/76; RESP 18; TEMP 97; O2SAT 96
--- NOTE | 2017-04-07 10:55 | RAD ---
PROCEDURE: CHEST RADIOGRAPH, 1 VIEW HISTORY: Shortness of breath COMPARISON: 12/24/2016. FINDINGS: LUNGS: The lungs are hyperinflated and there is peribronchial thickening with chronic changes in both lungs. No focal consolidation. PLEURA: No pneumothorax or pleural fluid seen. CARDIOVASCULAR: There is mild cardiomegaly. There is stable position of a left-sided unipolar transvenous permanent pacing device. OSSEOUS STRUCTURES: No significant abnormalities. VISUALIZED UPPER ABDOMEN: Normal. OTHER FINDINGS: None. IMPRESSION: COPD. No active pulmonary disease. Mild cardiomegaly.
--- NOTE | 2017-04-10 18:18 | CARD ---
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
== END 2017-04-07 00:30 ==
LOC: C.ER 22:22
DX: S01.112A Laceration without foreign body of left eyelid and periocular area, initial encounter (principal); W05.0XXA Fall from non-moving wheelchair, initial encounter